=== PATIENT | female | born 1995 | race Caucasian/White ===

== ENCOUNTER 2016-07-13 15:26 | Emergency (ER) | payer BC ==
[2016-07-13 15:45] VITALS: BP 125/81
--- NOTE | 2016-07-13 16:13 | UC ---
Abdominal Pain Female HPI - HPI Summary HPI Summary: SUDDEN ONSET OF INTERMITTENT, SHARP UPPER ABDOMINAL PAIN THIS MORNING ABOUT 5: 30AM. HAS SOME MILD NAUSEA BUT NO EMESIS OR DIARRHEA. PT TENDS TO BE CONSTIPATED AND HAS 1-2 BOWEL MOVEMENTS PER WEEK ON AVERAGE. HAS STRUGGLED WITH CONSTIPATION HER WHOLE LIFE AND TODAY NOTICED SOME BRIGHT RED BLOOD ON HER STOOL AND IN THE BOWL AFTER A HARD, UNCOMFORTABLE BM. DENIES FEVER. NO URINARY SX. APPETITE IS DOWN. HAS NOT EATEN ANYTHING TODAY. HAS NEVER BEEN . - History of Current Complaint Chief Complaint: UCAbdominalPain Stated Complaint: ABD PAIN Time Seen by Provider: 07/13/16 15:50 Hx Obtained From: Patient Hx Last Menstrual Period: 06/16/16 Onset/Duration: Sudden Onset, Lasting Hours, Still Present Timing: Intermittent Episodes Lasting: Severity Initially: Moderate Severity Currently: Moderate Pain Intensity: 5 Pain Scale Used: 0-10 Numeric Location: Discrete At: RUQ, Epigastric Radiates: No Character: Sharp Aggravating Factor(s): Nothing Alleviating Factor(s): Nothing Associated Signs and Symptoms: Positive: Constipation, Blood in Stool, Decreased Appetite, Nausea. Negative: Diaphoresis, Fever, Cough, Chest Pain, Dizzy, Back Pain, Urinary Symptoms, Vaginal Bleeding, Vaginal Discharge, Vomiting, Diarrhea Allergies/Adverse Reactions: Allergies Allergy/AdvReac Type Severity Reaction Status Date / Time No Known Allergies Allergy Verified 07/13/16 15:36 Home Medications: Home Medications Control Med 1 tab DAILY 07/13/16 [History] Rx Headache Med 1 tab PRN 07/13/16 [History] PMH/Surg Hx/FS Hx/Imm Hx Endocrine History Of: Reports: Thyroid Disease - hypo, Hypothyroidism - Surgical History Surgical History: Yes Surgery Procedure, Year, and Place: WISDOM TEETH - Family History Known Family History: Positive: Hypertension - Social History Alcohol Use: None Substance Use Type: None Smoking Status (MU): Never Smoked Tobacco Household Exposure Type: Cigarettes - Immunization History Most Recent Influenza Vaccination: Fall 2015 Vaccination Up to Date: Yes Review of Systems Constitutional: Negative Respiratory: Negative Cardiovascular: Negative Gastrointestinal: Abdominal Pain, Other - NAUSEA All Other Systems Reviewed And Are Negative: Yes Physical Exam Triage Information Reviewed: Yes Appearance: Well-Appearing, No Pain Distress, Well-Nourished Vital Signs: Initial Vital Signs Temp 98.2 F 07/13/16 15:38 Pulse 85 07/13/16 15:38 Resp 18 07/13/16 15:38 BP 125/81 07/13/16 15:38 Pulse Ox 99 07/13/16 15:38 Vital Signs Reviewed: Yes Eyes: Positive: Conjunctiva Clear ENT: Positive: Hearing grossly normal Neck: Positive: Supple Respiratory Exam: Normal Cardiovascular Exam: Normal Abdomen Description: Positive: Soft, Other: - TTP RUQ AND EPIGASTRIC AREAS. NO REBOUND OR RIGIDITY. DECLINES RECTAL EXAM.. Negative: CVA Tenderness (R), CVA Tenderness (L), Distended, Guarding Bowel Sounds: Positive: Present Musculoskeletal: Positive: No Edema Neurological: Positive: Alert Psychological: Positive: Age Appropriate Behavior Skin: Negative: rashes Diagnostics - Laboratory Diagnostic Studies Completed/Ordered: URINE HCG NEG. URINE DIP SP. GR. 1.035 Abd Pain Female Course/Dx - Course Course Of Treatment: TO ER FOR FURTHER EVAL OF ABDOMINAL PAIN. PT DECLINES RECTAL EXAM TODAY AND STATES SHE WILL FOLLOW-UP WITH HER PCP IN [place]. DISCUSSED PROBABLE HEMORRHOIDS IN SETTING OF CHRONIC CONSTIPATION. STRESSED IMPORTANCE OF EVALUATION OF BRBPR TO DETERMINE UNDERLYING CAUSE. PT VOICES UNDERSTANDING. - Differential Dx/Diagnosis Differential Diagnosis: Constipation, Gall Bladder Disease, Pancreatitis Provider Diagnoses: 1. ABDOMINAL PAIN, NOS. 2. BRBPR - LIKELY HEMORRHOIDS - Physician Notification/Consults Discussed Patient Care With: ANANDA GAO Time Discussed With Above Provider: 16:25 Instructed by Provider To: [place] [facility] [place] [facility] [place] Discharge - Discharge Plan Condition: Stable Disposition: TRANS HIGHER LVL OF CARE FAC
== END 2016-07-13 16:30 | disposition short-term general hospital (02) ==
LOC: UCEAST 15:26
DX: R10.10 Upper abdominal pain, unspecified (principal); K62.5 Hemorrhage of anus and rectum; E03.9 Hypothyroidism, unspecified
CPT/HCPCS: 81002; 81025; 99212; G0463

== ENCOUNTER 2016-07-13 16:50 | Emergency (ER) | payer BC ==
[2016-07-13] MEDS ORDERED: Ondansetron INJ* 2 MG/ML VIAL IV ONE (17:48)
[2016-07-13] MEDS ORDERED: NS 0.9% 1000 ML* 1,000 ML IV ONE (17:48)
[2016-07-13] MEDS ORDERED: Pantoprazole IV* 40 MG IV ONE (17:48)
[2016-07-13 18:08] LABS: Hematocrit 39 % (35-47); Hemoglobin 13.2 g/dl (12.0-16.0); Mean Corpuscular HGB Conc 34 g/dl (31-36); Mean Corpuscular Hemoglobin 29 pg (27-31); Mean Corpuscular Volume 86 fL (80-97); Mean Platelet Volume 8 um3 (7.4-10.4); Red Blood Count 4.57 10^6/ul (4.0-5.4); Red Cell Distribution Width 12 % (10.5-15); White Blood Count 10.2 10^3/ul (3.5-10.8)
[2016-07-13 18:24] LABS: ALT 23 U/L (7-52); Albumin 4.6 g/dL (3.2-5.2); Alkaline Phosphatase 63 U/L (34-104); BUN/Creatinine Ratio 16.5 (8-20); Blood Urea Nitrogen 14 mg/dL (6-24); C Reactive Protein 1.93 mg/L (< 5.00); CO2 Carbon Dioxide 27 mmol/L (22-32); Calcium 9.8 mg/dL (8.6-10.3); Chloride 102 mmol/L (101-111); EGFR African American 109.7 (>60); EGFR Non-African American 85.3 (>60); Globulin 3.1 g/dL (2-4); Glucose 78 mg/dL (70-100); Lipase 19 U/L (11.0-82.0); Sodium 134 mmol/L (133-145); Total Protein 7.7 g/dL (6.4-8.9)
[2016-07-13 18:25] LABS: AST 27 U/L (13-39); Anion Gap 5 mmol/L (2-11); Potassium 4.2 mmol/L (3.5-5.0)
--- NOTE | 2016-07-13 18:55 | RAD ---
HISTORY: Epigastric pain COMPARISONS: None TECHNIQUE: Multiple transverse and longitudinal ultrasound images were obtained of the right upper quadrant. FINDINGS: LIVER: The liver is normal in dimensions and echogenicity. Normal hepatic and portal venous blood flow is duplicated with color flow imaging. There is no gross intrahepatic biliary duct dilatation. GALLBLADDER AND EXTRAHEPATIC BILIARY DUCT: The gallbladder is normal in appearance without intraluminal stones or other soft tissue masses. There is no pericholecystic fluid or gallbladder wall thickening. The common bile duct measures a maximum diameter of 4 mm. PANCREAS: The portions of the pancreas not obscured by bowel gas are normal in appearance. RIGHT KIDNEY: The right kidney is normal in size, morphology and echogenicity. AORTA AND IVC: The visualized portions are normal in appearance and not pathologically dilated. IMPRESSION: Normal ultrasound of the right upper quadrant.
[2016-07-13 19:16] LABS: Urine Bilirubin Negative (Negative); Urine Glucose Negative (Negative); Urine Nitrite Negative (Negative)
[2016-07-13 19:43] VITALS: BP 121/69
--- NOTE | 2016-07-13 20:42 | ED ---
pb Rivera Timothy, scribed for Ehsan Araya MD on 07/13/16 at 1738 . GI/ HPI - HPI Summary HPI Summary: Airam Hazel is a 21 yo female presenting to [facility] with intermittent 5/10 sharp abd pain and bright red blood in her stool yesterday, today, and one week ago. The pain makes her nauseous. She states the blood is accompanied by difficulty and rectal pain with BM. She states she has been constipated, but this is her baseline. She was recommended to present to [facility] by urgent care. Her MHx includes hypothyroidism. - History of Current Complaint Time Seen by Provider: 07/13/16 17:36 Stated Complaint: ABD PAIN/BLOOD IN STOOL/CONV CARE Hx Obtained From: Patient Onset/Duration: Started Weeks Ago, Still Present Timing: Intermittent Severity: Moderate Current Severity: Moderate Pain Intensity: 5 Location of Pain: Epigastric Associated Signs and Symptoms: Positive: Rectal Pain, Blood w/Stool, Abdominal Pain - Allergy/Home Medications Allergies/Adverse Reactions: Allergies Allergy/AdvReac Type Severity Reaction Status Date / Time No Known Allergies Allergy Verified 07/13/16 15:36 PMH/Surg Hx/FS Hx/Imm Hx Endocrine/Hematology History: Reports: Hx Thyroid Disease - hypo - Surgical History Surgery Procedure, Year, and Place: WISDOM TEETH Infectious Disease History: No Infectious Disease History: Denies: Traveled Outside the [place] in Last 30 Days - Family History Known Family History: Positive: Hypertension - Social History Alcohol Use: None Substance Use Type: Reports: None Smoking Status (MU): Never Smoked Tobacco Review of Systems Constitutional: Negative Eyes: Negative ENT: Negative Cardiovascular: Negative Respiratory: Negative Gastrointestinal: Other - blood with stool, rectal pain with BM Positive: Abdominal Pain, Nausea Genitourinary: Negative Musculoskeletal: Negative Skin: Negative Neurological: Negative Psychological: Normal All Other Systems Reviewed And Are Negative: Yes Physical Exam Triage Information Reviewed: Yes Vital Signs On Initial Exam: Initial Vitals Temp Pulse Resp BP Pulse Ox 97.5 F 81 20 126/74 99 07/13/16 16:52 07/13/16 16:52 07/13/16 16:52 07/13/16 16:52 07/13/16 16:52 Vital Signs Reviewed: Yes Appearance: Positive: Well-Appearing, No Pain Distress Skin: Positive: Warm, Skin Color Reflects Adequate Perfusion, Dry Head/Face: Positive: Normal Head/Face Inspection Eyes: Positive: Normal ENT: Positive: Normal ENT inspection Neck: Positive: Supple, Nontender Respiratory/Lung Sounds: Positive: Clear to Auscultation, Breath Sounds Present Cardiovascular: Positive: RRR Abdomen Description: Positive: Soft, Other: - positive govea's sign. Negative : Nontender - epigastric tenderness, RUQ tenderness Bowel Sounds: Positive: Present Musculoskeletal: Positive: Normal Neurological: Positive: Normal Psychiatric: Positive: Normal, Affect/Mood Appropriate Diagnostics - Vital Signs Vital Signs Temp Pulse Resp BP Pulse Ox 07/13/16 16:52 97.5 F 81 20 126/74 99 - Laboratory Lab Results: Lab Results 07/13/16 07/13/16 07/13/16 Range/Units 18:00 18:00 18:00 WBC 10.2 (3.5-10.8) 10^3/ul RBC 4.57 (4.0-5.4) 10^6/ul Hgb 13.2 (12.0-16.0) g/dl Hct 39 (35-47) % MCV 86 (80-97) fL MCH 29 (27-31) pg MCHC 34 (31-36) g/dl RDW 12 (10.5-15) % Plt Count 259 (150-450) 10^3/ul MPV 8 (7.4-10.4) um3 Neut % (Auto) 72.1 (38-83) % Lymph % (Auto) 20.9 L (25-47) % Thomas % (Auto) 5.1 (1-9) % Eos % (Auto) 1.2 (0-6) % Baso % (Auto) 0.7 (0-2) % Absolute Neuts (auto) 7.4 (1.5-7.7) 10^3/ul Absolute Lymphs (auto) 2.1 (1.0-4.8) 10^3/ul Absolute Monos (auto) 0.5 (0-0.8) 10^3/ul Absolute Eos (auto) 0.1 (0-0.6) 10^3/ul Absolute Basos (auto) 0.1 (0-0.2) 10^3/ul Absolute Nucleated RBC 0.01 10^3/ul Nucleated RBC % 0.1 Sodium 134 (133-145) mmol/L Potassium 4.2 (3.5-5.0) mmol/L Chloride 102 (101-111) mmol/L Carbon Dioxide 27 (22-32) mmol/L Anion Gap 5 (2-11) mmol/L BUN 14 (6-24) mg/dL Creatinine 0.85 (0.51-0.95) mg/dL Est GFR ( Amer) 109.7 (>60) Est GFR (Non-Af Amer) 85.3 (>60) BUN/Creatinine Ratio 16.5 (8-20) Glucose 78 (70-100) mg/dL Lactic Acid 0.8 (0.5-2.0) mmol/L Calcium 9.8 (8.6-10.3) mg/dL Total Bilirubin 0.90 (0.2-1.0) mg/dL AST 27 (13-39) U/L ALT 23 (7-52) U/L Alkaline Phosphatase 63 (34-104) U/L C-Reactive Protein 1.93 (< 5.00) mg/L Total Protein 7.7 (6.4-8.9) g/dL Albumin 4.6 (3.2-5.2) g/dL Globulin 3.1 (2-4) g/dL Albumin/Globulin Ratio 1.5 (1-3) Lipase 19 (11.0-82.0) U/L Beta HCG, Quant < 0.60 mIU/mL Urine Color Urine Appearance Urine pH (5-9) Ur Specific [place] (1.010-1.030) Urine Protein (Negative) Urine Ketones (Negative) Urine Blood (Negative) Urine Nitrate (Negative) Urine Bilirubin (Negative) Urine Urobilinogen (Negative) Ur Leukocyte Esterase (Negative) Urine Glucose (Negative) 07/13/16 Range/Units 19:04 WBC (3.5-10.8) 10^3/ul RBC (4.0-5.4) 10^6/ul Hgb (12.0-16.0) g/dl Hct (35-47) % MCV (80-97) fL MCH (27-31) pg MCHC (31-36) g/dl RDW (10.5-15) % Plt Count (150-450) 10^3/ul MPV (7.4-10.4) um3 Neut % (Auto) (38-83) % Lymph % (Auto) (25-47) % Thomas % (Auto) (1-9) % Eos % (Auto) (0-6) % Baso % (Auto) (0-2) % Absolute Neuts (auto) (1.5-7.7) 10^3/ul Absolute Lymphs (auto) (1.0-4.8) 10^3/ul Absolute Monos (auto) (0-0.8) 10^3/ul Absolute Eos (auto) (0-0.6) 10^3/ul Absolute Basos (auto) (0-0.2) 10^3/ul Absolute Nucleated RBC 10^3/ul Nucleated RBC % Sodium (133-145) mmol/L Potassium (3.5-5.0) mmol/L Chloride (101-111) mmol/L Carbon Dioxide (22-32) mmol/L Anion Gap (2-11) mmol/L BUN (6-24) mg/dL Creatinine (0.51-0.95) mg/dL Est GFR ( Amer) (>60) Est GFR (Non-Af Amer) (>60) BUN/Creatinine Ratio (8-20) Glucose (70-100) mg/dL Lactic Acid (0.5-2.0) mmol/L Calcium (8.6-10.3) mg/dL Total Bilirubin (0.2-1.0) mg/dL AST (13-39) U/L ALT (7-52) U/L Alkaline Phosphatase (34-104) U/L C-Reactive Protein (< 5.00) mg/L Total Protein (6.4-8.9) g/dL Albumin (3.2-5.2) g/dL Globulin (2-4) g/dL Albumin/Globulin Ratio (1-3) Lipase (11.0-82.0) U/L Beta HCG, Quant mIU/mL Urine Color Straw Urine Appearance Clear Urine pH 5.0 (5-9) Ur Specific [place] 1.008 L (1.010-1.030) Urine Protein Negative (Negative) Urine Ketones 1+ H (Negative) Urine Blood Negative (Negative) Urine Nitrate Negative (Negative) Urine Bilirubin Negative (Negative) Urine Urobilinogen Negative (Negative) Ur Leukocyte Esterase Negative (Negative) Urine Glucose Negative (Negative) Result Diagrams: 07/13/16 18:00 07/13/16 18:00 Lab Statement: Any lab studies that have been ordered have been reviewed, and results considered in the medical decision making process. - Ultrasound No standard instances Ultrasound Interpretation: No Acute Changes - IMPRESSION: Normal ultrasound of the right upper quadrant. Ultrasound Interpretation Completed By: Radiologist Re-Evaluation - Re-Evaluation First Eval Re-Evaluation Time: 19:02 Change: Unchanged Comment: Rectal exam was performed. She has a small rectal fissure at about 8 or 9 o'clock GIGU Course/Dx - Course Assessment/Plan: Airam Hazel is a 21 yo female presenting to [facility] with 3/10 abdominal pain and bright red blood in her stool, as well as nausea. After negative gallbladder ultrasound and review of her lab work, she will be discharged home. She improved a lot with prilosec and I found a small rectal fissure. Unfortunately it was at 8-9 and will need further W/U. - Diagnoses Provider Diagnoses: Epigastric pain, Rectal fissure Discharge - Discharge Plan Condition: Stable Disposition: HOME Prescriptions: Docusate CAP* [Colace Cap*] 100 mg PO BID #20 cap Omeprazole CAP* [Prilosec CAP* 20 MG] 20 mg PO BID #20 cap. Patient Education Materials: Epigastric Pain (ED), Rectal Bleeding (ED) Referrals: No Primary Care Phys,NOPCP [Primary Care Provider] - [facility] [Outside] - 2 Days Additional Instructions: Please follow up with the primary care physician provided regarding your visit to the emergency department today. Return to the emergency department with any new or recurring symptoms.INITIAL MANAGEMENT OF TYPICAL FISSURES For patients with a typical anal fissure (ie, a single posterior or anterior fissure with no evidence of Crohn disease), we recommend prescribing a combination of supportive measures (fiber, sitz bath, topical analgesic) and one of the topical vasodilators (nifedipine or nitroglycerin) for one month (algorithm 1). In addition, patients who are constipated should receive a stool softener or laxative. The treatment goal is to relax the internal anal sphincter, initiate and maintain atraumatic passage of stool, and relieve pain. Although medical therapy is less effective than surgery, especially for chronic anal fissures, it should be offered first because of its wide availability, better tolerance, and lack of severe complications (ie, fecal incontinence) [3,4 ]. The best data come from a trial that randomly assigned 54 patients with anal fissures to receive either a lateral internal sphincterotomy (surgery) or 0.2 percent nitroglycerin ointment (medical therapy) for 10 weeks; all patients received warm sitz baths and a fiber-bulking agent [5]. Compared with the medicine group, the surgery group achieved higher rates of fissure healing (96 versus 67 percent at 5 weeks and 100 versus 89 percent at 10 weeks) at the expense of a significantly higher rate of minor fecal incontinence (44 versus 0 percent). Fifteen percent of patients who underwent surgery had residual fecal incontinence after two years. Fiber Fiber therapy prevents hard bowel movements, which could reinjure a healing fissure. ?Increasing dietary fiber and water intake is the best way to soften and bulk the stool. The recommended dietary fiber intake is between 20 and 35 grams per day (table 1). ?Patients who continue to have difficulty with hard bowel movements despite increasing dietary fiber intake may use fiber supplements, such as psyllium seed (Metamucil), methylcellulose (Citrucel), wheat dextran (Benefiber), and calcium polycarbophil (Fibercon). These [id number] products work by absorbing water and increasing stool bulk, which increases the frequency of bowel movements and softens stool. Fiber supplements are safe for daily use, non -habit-forming, and can be used lifelong. Possible side effects may include gas and bloating, especially when they are first started. (See "Patient education: Constipation in adults (Beyond the Basics)".) Sitz bath Warm sitz baths, which can relax the anal sphincter and improve blood flow to the anal mucosa, are recommended for patients with anal fissures [ 6,7]. During a sitz bath, the anus is immersed in warm water for approximately 10 to 15 minutes two to three times daily. Sitz bath kits are available in most drugstores, and portable bowls can be used at work or school. At home, it is also possible to use a bathtub for sitz bath by filling it with two to three inches of warm water. Additives such as soap and bubble bath are not recommended. After a sitz bath, it is important to towel or blow dry (with a dehairing machine tender on low heat setting) the anal area well. Stool softner or laxative A variety of drugs (eg, Docusate) and natural products are available for treating constipation either [id number] or by prescription. Constipation may lead to straining, which can exacerbate the anal fissure. The documentation as recorded by the pb lombardi Timothy accurately reflects the service I personally performed and the decisions made by me, Ehsan Araya MD.
== END 2016-07-13 19:43 | disposition home or self-care (01) ==
LOC: ED 16:50
DX: R10.13 Epigastric pain (principal); K60.2 Anal fissure, unspecified; K62.89 Other specified diseases of anus and rectum; R11.0 Nausea
CPT/HCPCS: 36415; 76705; 80053; 81003; 83605; 83690; 84702; 85025; 86140; 96374; 96375; 99284; J2405

== ENCOUNTER 2017-06-18 15:25 | Emergency (ER) | payer BC ==
[2017-06-18 15:36] VITALS: BP 122/77
--- NOTE | 2017-06-18 16:30 | UC ---
FLU HPI - HPI Summary HPI Summary: Pt presents with 2 days of dry cough, fever, fatigue, and body aches. 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 She did get her flu shot this year. She has been taking ibuprofen for her symptoms with good control of her fever. Denies SOB, chest pain, abdominal pain, n/v/d/c. - History of Current Complaint Chief Complaint: UCRespiratory Stated Complaint: BODY ACHES, COUGH Time Seen by Provider: 06/18/17 16:29 Hx Obtained From: Patient Hx Last Menstrual Period: 05/21/17 Onset/Duration: Sudden Onset Severity Currently: Moderate Severity Initially: Moderate Pain Intensity: 6 Pain Scale Used: 0-10 Numeric - Allergy/Home Medications Allergies/Adverse Reactions: Allergies Allergy/AdvReac Type Severity Reaction Status Date / Time No Known Allergies Allergy Verified 06/18/17 15:37 PMH/Surg Hx/FS Hx/Imm Hx Previously Healthy: Yes - Surgical History Surgical History: Yes Surgery Procedure, Year, and Place: WISDOM TEETH - Family History Known Family History: Positive: Hypertension - Social History Occupation: Employed Full-time Lives: Alone Alcohol Use: Occasionally Substance Use Type: None Smoking Status (MU): Never Smoked Tobacco Household Exposure Type: Cigarettes - Immunization History Most Recent Influenza Vaccination: Fall 2015 Vaccination Up to Date: Yes Review of Systems Constitutional: Fever, Fatigue, Other - Body aches Skin: Negative Eyes: Negative ENT: Ear Ache Respiratory: Cough Cardiovascular: Negative Gastrointestinal: Negative Musculoskeletal: Negative Neurological: Negative Psychological: Negative All Other Systems Reviewed And Are Negative: Yes Physical Exam Triage Information Reviewed: Yes Appearance: No Pain Distress, Ill-Appearing, Obese Vital Signs: Initial Vital Signs Temp 98.9 F 06/18/17 15:33 Pulse 107 06/18/17 15:33 Resp 18 06/18/17 15:33 BP 122/77 06/18/17 15:33 Pulse Ox 100 06/18/17 15:33 Vital Signs Reviewed: Yes Eyes: Positive: Conjunctiva Clear. Negative: Conjunctiva Inflamed, Discharge ENT: Positive: Hearing grossly normal, Pharynx normal, TMs normal, Uvula midline. Negative: Pharyngeal erythema, Nasal congestion, Nasal drainage, TM bulging, TM dull, TM red, Tonsillar swelling, Tonsillar exudate, Hoarse voice, Sinus tenderness Neck: Positive: Supple, Nontender, No Lymphadenopathy Respiratory: Positive: Chest non-tender, Lungs clear, Normal breath sounds, No respiratory distress, No accessory muscle use Cardiovascular: Positive: RRR, No Murmur, Pulses Normal Neurological: Positive: Alert Psychological: Positive: Age Appropriate Behavior Skin: Negative: rashes Flu Course/Dx - Course Course Of Treatment: Influenza A positive - Tamiflu - Differential Dx/Diagnosis Provider Diagnoses: Influenza A Discharge - Discharge Plan Condition: Stable Disposition: HOME Prescriptions: Oseltamivir CAP* [Tamiflu CAP*] 75 mg PO BID #10 cap Patient Education Materials: Influenza (DC) Forms: *Work Release Referrals: No Primary Care Phys,NOPCP [Primary Care Provider] - Additional Instructions: If you develop a fever, shortness of breath, chest pain, new or worsening symptoms - please call your PCP or go to the ED.
== END 2017-06-18 17:20 | disposition home or self-care (01) ==
LOC: UCEAST 15:25
DX: J11.1 Influenza due to unidentified influenza virus with other respiratory manifestations (principal); E66.9 Obesity, unspecified; Z77.22 Contact with and (suspected) exposure to environmental tobacco smoke (acute) (chronic)
CPT/HCPCS: 87502; 99212; G0463

== ENCOUNTER 2018-02-09 13:20 | Emergency (ER) | payer BC ==
[2018-02-09 14:04] VITALS: BP 135/71
--- NOTE | 2018-02-09 14:51 | UC ---
Headache HPI - HPI Summary HPI Summary: pt c/o of elevated BP while having MCCORMACK. Pt had migraine two days ago while at work and had BP while at work. Pt states that her BP has been elevated for two days. Pt has hx of migraines and takes RX medication daily to manage them. Pt reports that at work she is not allow ed to sit if she is having a MCCORMACK. - History Of Current Complaint Chief Complaint: UCGeneralIllness Stated Complaint: HIGH BLOOD PRESSURE,MIGRANES Time Seen by Provider: 02/09/18 14:40 Hx Obtained From: Patient Hx Last Menstrual Period: 01/21/18 ?: No Onset/Duration: Sudden Onset, Lasting Days, Resolved Onset Of Symptoms: Sudden, Resolved Pain Intensity: 0 Timing: Constant Character: Dull, Pressure, Migraine Location of Headache: Diffuse Aggravating Factor(s): Position Change Allevating Factor(s): Rest, Medication Associated Signs And Symptoms: Positive: Negative - Risk Factors SAH Risk Factors: Negative Meningitis Risk Factors: Negative SDH Risk Factors: Negative Temporal Arteritis Risk Factors: Female - Allergies/Home Medications Allergies/Adverse Reactions: Allergies Allergy/AdvReac Type Severity Reaction Status Date / Time No Known Allergies Allergy Verified 02/09/18 13:53 Home Medications: Home Medications Rizatriptan ODT (NF) [Maxalt-INVESTMENT ACCOUNTING CLERK (NF)] 10 mg PO SEE INSTRUCTIONS PRN 02/09/18 [ History Confirmed 02/09/18] PMH/Surg Hx/FS Hx/Imm Hx Previously Healthy: Yes - Surgical History Surgical History: Yes Surgery Procedure, Year, and Place: WISDOM TEETH - Family History Known Family History: Positive: Hypertension - Social History Occupation: Employed Full-time Lives: With Family Alcohol Use: Occasionally Substance Use Type: None Smoking Status (MU): Never Smoked Tobacco Have You Smoked in the Last Year: No Household Exposure Type: Cigarettes - Immunization History Most Recent Influenza Vaccination: Fall 2015 Vaccination Up to Date: Yes Review of Systems Constitutional: Negative Skin: Negative Eyes: Negative ENT: Negative Respiratory: Negative Cardiovascular: Negative Gastrointestinal: Negative Genitourinary: Negative Motor: Negative Neurovascular: Negative Musculoskeletal: Negative Neurological: Headache Psychological: Negative Is Patient Immunocompromised?: No All Other Systems Reviewed And Are Negative: Yes Physical Exam Triage Information Reviewed: Yes Appearance: Well-Appearing, Other: - pt tearful when disucssing work environment. Vital Signs: Initial Vital Signs Temp 98.3 F 02/09/18 13:55 Pulse 86 02/09/18 13:55 Resp 15 02/09/18 13:55 BP 137/78 02/09/18 13:55 Pulse Ox 100 02/09/18 13:55 Vital Signs Reviewed: Yes Eye Exam: Normal ENT Exam: Normal ENT: Positive: Hearing grossly normal Dental Exam: Normal Neck exam: Normal Respiratory Exam: Normal Cardiovascular Exam: Normal Musculoskeletal Exam: Normal Neurological Exam: Normal Psychological Exam: Normal Skin Exam: Normal Headache Course/Dx - Differential Dx/Diagnosis Differential Diagnosis/HQI/PQRI: Migraine, Tension Headache Provider Diagnoses: Headache. elevated blood pressure. Discharge - Sign-Out/Discharge Documenting (check all that apply): Patient Departure All imaging exams completed and their final reports reviewed: No Studies - Discharge Plan Condition: Stable Disposition: HOME Patient Education Materials: Migraine Headache (ED) Forms: *Work Release, *Gen. Provider Communication Referrals: Don Damian MD [Primary Care Provider] - If Needed - Billing Disposition and Condition Condition: STABLE Disposition: Home
== END 2018-02-09 15:01 | disposition home or self-care (01) ==
LOC: UCCORT 13:20
DX: R51 Headache (principal); R03.0 Elevated blood-pressure reading, without diagnosis of hypertension
CPT/HCPCS: 99212; G0463

== ENCOUNTER 2018-06-08 15:59 | Emergency (ER) | payer BC ==
[2018-06-08 16:14] VITALS: BP 128/80
--- NOTE | 2018-06-08 17:29 | UC ---
Respiratory Complaint HPI - HPI Summary HPI Summary: 23-year-old female presents with 2 week history of nasal congestion, sinus congestion, bilateral ear fullness, occasional sore throat, and a productive cough for yellow sputum. Denies fever, chills, chest pain, palpitations, shortness of breath, abdominal pain, nausea, vomiting, or diarrhea. - History of Current Complaint Chief Complaint: UCGeneralIllness Stated Complaint: CHEST CONGESTION, AND SORE THROAT Time Seen by Provider: 06/08/18 17:10 Hx Obtained From: Patient Hx Last Menstrual Period: [id number] Pain Intensity: 8 - Allergies/Home Medications Allergies/Adverse Reactions: Allergies Allergy/AdvReac Type Severity Reaction Status Date / Time No Known Allergies Allergy Verified 06/08/18 16:16 Home Medications: Home Medications Fluticasone NASAL SPRAY 50MCG* [Flonase NASAL SPRAY 50MCG*] 1 spray BOTH NARES DAILY 06/08/18 [History Confirmed 06/08/18] Naproxen [Naproxen 500 mg tab] 500 mg PO DAILY PRN 06/08/18 [History Confirmed 06/08/18] Nortriptyline CAP* [Pamelor CAP*] 75 mg PO BEDTIME 06/08/18 [History Confirmed 06/08/18] PMH/Surg Hx/FS Hx/Imm Hx Endocrine History: Hypothyroidism Neurological History: Migraine Psychological History: Depression - Surgical History Surgical History: Yes Surgery Procedure, Year, and Place: WISDOM TEETH - Family History Known Family History: Positive: Hypertension - Social History Occupation: Employed Full-time Lives: Alone Alcohol Use: Occasionally Substance Use Type: None Smoking Status (MU): Never Smoked Tobacco Have You Smoked in the Last Year: No Household Exposure Type: Cigarettes - Immunization History Most Recent Influenza Vaccination: Fall 2015 Vaccination Up to Date: Yes Review of Systems All Other Systems Reviewed And Are Negative: Yes Physical Exam - Summary Physical Exam Summary: GENERAL APPEARANCE: Well developed, well nourished, alert and cooperative, and appears to be in no acute distress. EYES: Conjunctiva clear. No discharge. Vision is grossly intact. EARS: External auditory canals and tympanic membranes clear, hearing grossly intact. NOSE: Mild-moderate nasal congestion with mucosal erythema and edema. THROAT: Pharynx mildly erythematous with cobblestoning. No tonsilar inflammation , swelling, exudate, or lesions. Teeth and gingiva in good general condition. NECK: Neck supple, non-tender without lymphadenopathy. CARDIAC: Normal S1 and S2. No S3, S4 or murmurs. Rhythm is regular. There is no peripheral edema, cyanosis or pallor. Extremities are warm and well perfused. Capillary refill is less than 2 seconds. LUNGS: Clear to auscultation without rales, rhonchi, wheezing or diminished breath sounds. Cough not observed. ABDOMEN: Positive bowel sounds. Soft, nondistended, nontender. No guarding or rebound. No masses or hepatosplenomegally. MUSKULOSKELETAL: ROM intact to all extremities. No joint erythema or tenderness. Normal muscular development. Normal gait. SKIN: Skin normal color, texture and turgor with no lesions or eruptions. Triage Information Reviewed: Yes Vital Signs: Initial Vital Signs Temp 97.9 F 06/08/18 16:10 Pulse 89 06/08/18 16:10 Resp 14 06/08/18 16:10 BP 128/80 06/08/18 16:10 Pulse Ox 99 06/08/18 16:10 Vital Signs Reviewed: Yes Diagnostic Evaluation - Laboratory O2 Sat by Pulse Oximetry: 99 Respiratory Course/Dx - Course Course Of Treatment: 23-year-old female presents with 2 week history of nasal congestion, sinus congestion, bilateral ear fullness, occasional sore throat, and a productive cough for yellow sputum. Denies fever, chills, chest pain, palpitations, shortness of breath, abdominal pain, nausea, vomiting, or diarrhea. Afebrile. Vital signs stable. Exam reveals an adult female in no acute distress with [id number] nasal congestion, nasal mucosal erythema with mild edema, mild pharyngeal erythema with cobblestoning and otherwise unremarkable exam. Considering the duration of her symptoms I will change her for an upper respiratory infection with Augmentin 875 mg twice a day 10 days as well as symptomatic treatment. She is to follow up with her primary care provider in 7 days if symptoms do not improve. Anticipatory guidance and warning symptoms were reviewed with the patient. Patient verbalizes understanding and agrees with plan of care. - Differential Dx/Diagnosis Differential Diagnosis/HQI/PQRI: Bronchitis, Lower Resp Infection, Sinusitis, Other - URI Provider Diagnosis: URI with cough and congestion Discharge - Sign-Out/Discharge Documenting (check all that apply): Patient Departure All imaging exams completed and their final reports reviewed: No Studies - Discharge Plan Condition: Stable Disposition: HOME Prescriptions: Amoxicillin/Clavulanate TAB* [Augmentin TAB 875*] 875 mg PO BID #20 tab Patient Education Materials: Upper Respiratory Infection (ED) Referrals: Don Damian MD [Primary Care Provider] - 7 Days (If no improvement.) Additional Instructions: Your history and exam are consistent with an upper respiratory infection. Considering the duration of your symptoms we will treat the infection with an antibiotic. Start Augmentin 1 tab twice a day for 10 days. Take with food to avoid upset stomach. Be sure to complete the entire course even if you feel better. Drink plenty of fluids to avoid dehydration especially if you are running any fever. Use a saline rinse kit such as Neti Pot or NeilMed at least twice a day to help thin secretions and promote drainage of the sinuses. Continue to use your fluticasone (Flonase) nasal spray 2 sprays each nostril once daily. Use an over the counter decongestant such as Sudafed to help with the congestion. Take over the counter acetaminophen (Tylenol) or ibuprofen (Advil, Motrin) according to directions as needed for pain or fever. Use salt water gargles several times a day if you have a sore throat. You may also use Chloraseptic spray or Cepacol lonzenges according to directions which contain a numbing medication and can provide some temporary relief from your sore throat. Follow up with your primary care provider in 7 days if symptoms persist. Seek immediate medical attention in the emergency room if you have fever greater than 100.5 F despite taking acetaminophen or ibuprofen, have chest pain , difficulty breathing, are unable to swallow, or have any worsening of symptoms. - Billing Disposition and Condition Condition: STABLE Disposition: Home
== END 2018-06-08 18:00 | disposition home or self-care (01) ==
LOC: UCEAST 15:59
DX: J06.9 Acute upper respiratory infection, unspecified (principal)
CPT/HCPCS: 99212; G0463

== ENCOUNTER 2019-07-08 07:36 | Emergency (ER) | payer BC ==
[2019-07-08 07:59] VITALS: BP 145/99
--- NOTE | 2019-07-08 08:47 | UC ---
Dizzy HPI HPI Summary: When she got out of bed this morning she felt somewhat lightheaded when she was walking around. This has continued. She feels fine when she lying down or sitting. She has no other complaints. She denies any pain or nausea. She has not complaining of any recent infection. - History Of Current Complaint Chief Complaint: UCDizziness Stated Complaint: DIZZINESS Time Seen by Provider: 07/08/19 08:15 Hx Obtained From: Patient, Family/Adviser Sales Hx Last Menstrual Period: 06/20/19 ?: No Onset/Duration: Sudden Onset, Lasting Hours Timing: Constant Severity Initially: Mild Severity Currently: Mild Pain Intensity: 0 Character: Lightheaded Aggravating Factor(s): Supine To Erect Alleviating Factor(s): Rest Associated Signs And Symptoms: Positive: Negative - Allergies/Home Medications Allergies/Adverse Reactions: Allergies Allergy/AdvReac Type Severity Reaction Status Date / Time No Known Allergies Allergy Verified 07/08/19 07:59 Home Medications: Home Medications Levothyroxine TAB* [Synthroid 75 MCG TAB*] 125 mcg PO DAILY 09/18/12 [History Confirmed 07/08/19] Control Med 1 tab PO DAILY 07/13/16 [History Confirmed 07/08/19] Rizatriptan ODT (NF) [Maxalt-AUTOMOTIVE SALESPERSON (NF)] 10 mg PO SEE INSTRUCTIONS PRN 02/09/18 [ History Confirmed 07/08/19] Fluticasone NASAL SPRAY 50MCG* [Flonase NASAL SPRAY 50MCG*] 1 spray BOTH NARES DAILY 06/08/18 [History Confirmed 07/08/19] Nortriptyline CAP* [Pamelor CAP*] 75 mg PO BEDTIME 06/08/18 [History Confirmed 07/08/19] Citalopram TAB* [Celexa TAB*] 2 tab PO DAILY WITH MEAL 07/08/19 [History Confirmed 07/08/19] PMH/Surg Hx/FS Hx/Imm Hx Endocrine History: Thyroid Disease Neurological History: Migraine - Surgical History Surgical History: Yes Surgery Procedure, Year, and Place: WISDOM TEETH - Family History Known Family History: Positive: Hypertension - Social History Alcohol Use: Occasionally Substance Use Type: None Smoking Status (MU): Never Smoked Tobacco Have You Smoked in the Last Year: No Household Exposure Type: Cigarettes - Immunization History Most Recent Influenza Vaccination: Fall 2015 Vaccination Up to Date: Yes Review of Systems All Other Systems Reviewed And Are Negative: Yes Constitutional: Positive: Negative Skin: Positive: Negative Eyes: Positive: Negative ENT: Positive: Negative Respiratory: Positive: Negative Cardiovascular: Positive: Negative Gastrointestinal: Positive: Negative Genitourinary: Positive: Negative Motor: Positive: Negative Musculoskeletal: Positive: Negative Neurological/Mental Status: Positive: Negative Psychological: Positive: Negative Is Patient Immunocompromised?: No Physical Exam - Summary Physical Exam Summary: She is nontoxic in appearance with stable vital signs. She is obese Triage Information Reviewed: Yes Appearance: Well-Appearing, No Pain Distress, Obese Vital Signs: Initial Vital Signs Temp 97.6 F 07/08/19 07:53 Pulse 93 07/08/19 07:53 Resp 18 07/08/19 07:53 BP 145/99 07/08/19 07:53 Pulse Ox 99 07/08/19 07:53 Vital Signs Reviewed: Yes Eyes: Positive: Conjunctiva Clear ENT: Positive: Normal ENT inspection Neck exam: Normal Respiratory Exam: Normal Cardiovascular Exam: Normal Abdominal Exam: Normal Musculoskeletal Exam: Normal Neurological Exam: Normal Psychological Exam: Normal Skin Exam: Normal Dizzy Course/Dx - Course Course Of Treatment: Is no obvious reason for her dizziness at this point. It seems more like lightheadedness and not vertigo or balance issues. I recommended if she continues to have concerns that she go to the emergency department for more thorough evaluation. We are limited here to a few superficial tests. We cannot do specialized imaging or laboratory work. - Differential Dx/Diagnosis Provider Diagnosis: Light-headed feeling Discharge ED - Sign-Out/Discharge Documenting (check all that apply): Patient Departure All imaging exams completed and their final reports reviewed: No Studies - Discharge Plan Condition: Stable Disposition: HOME Patient Education Materials: Lightheadedness (ED) Referrals: Don Damian MD [Primary Care Provider] - - Billing Disposition and Condition Condition: STABLE Disposition: Home
[2019-07-08 09:17] LABS: Influenza A Molecular Negative (Negative); Influenza B Molecular Negative (Negative)
== END 2019-07-08 09:25 | disposition home or self-care (01) ==
LOC: UCEAST 07:36
DX: R42 Dizziness and giddiness (principal); E07.89 Other specified disorders of thyroid; G43.909 Migraine, unspecified, not intractable, without status migrainosus; Z79.890 Hormone replacement therapy; Z79.899 Other long term (current) drug therapy
CPT/HCPCS: 81003; 84702; 87086; 99211; G0463

== ENCOUNTER 2024-05-13 11:17 | Observation (INO) ==
[2024-05-13] MEDS: Lactated Ringers 1000 ml BAG 1,000 ML IV ONE (13:07)
[2024-05-13] MEDS: Metoclopramide 5 MG/ML VIAL (10 mg) IV ONE (13:12)
[2024-05-13 13:24] LABS: ABS Eosinophils 0.2 10^3/uL (0.0-0.5); ABS Lymphocytes 1.4 10^3/uL (1.0-4.8); ABS Monocytes 0.5 10^3/uL (0.0-0.9); ABS Neutrophils 5.9 10^3/uL (1.5-7.6); ABS Nucleated RBC 0.01 10^3/ul; Eosinophil % 2.6 %; Hematocrit 40.3 % (35-45); Hemoglobin 14.1 g/dL (11.5-14.3); Mean Corpuscular Hemoglobin 30.5 pg (27-33); Mean Corpuscular Volume 87.2 fL (80-97); Mean Platelet Volume 8.6 fL (7.5-11.2); Nucleated Red Blood Cells % 0.1 %/100WBC (0.0-0.8); Platelet Count 226 10^3/uL (150-450); Red Blood Count 4.62 10^6/uL (3.63-4.92); Red Cell Distribution Width 12.9 % (12-17)
[2024-05-13 13:53] LABS: Albumin 4.4 g/dL (3.5-5.7); Albumin/Globulin Ratio 1.8 (1-3); Calcium 9.3 mg/dL (8.6-10.3); Creatinine, Serum 1.11 mg/dL (0.51-0.95); Globulin 2.4 g/dL (2-4); Potassium 4.1 mmol/L (3.5-5.0); Total Bilirubin 0.8 mg/dL (0.2-1.0); Total Protein 6.8 g/dL (6.4-8.9); eGFR CKD-EPI 69.4 (>60)
[2024-05-13] MEDS: Caffeine Citrate INJ 60 MG/3 ML IV ONE ×2 (14:13→14:14)
[2024-05-13] MEDS: Caffeine Citrate ORAL 20 MG/ML ORAL.SOLN 3 ML (preservative free) PO ONE (14:37)
[2024-05-14] MEDS: Dihydroergotamine (D.H.E.) 1 MG/ML 1 ML AMP IV SLOW PU SCH (11:26)
[2024-05-14 11:36] LABS: INR 1.17 (0.85-1.14)
[2024-05-14] MEDS: Ondansetron 4 mg VIAL 2 MG/ML 2 ml VIAL IV PRN (13:29)
[2024-05-14] MEDS: Ondansetron 4 mg VIAL 2 MG/ML 2 ml VIAL ONE (13:52)
[2024-05-15 05:46] LABS: ABS Basophils 0.1 10^3/uL (0.0-0.1); ABS Eosinophils 0.4 10^3/uL (0.0-0.5); ABS Lymphocytes 2.1 10^3/uL (1.0-4.8); ABS Monocytes 0.5 10^3/uL (0.0-0.9); Hematocrit 42.3 % (35-45); Hemoglobin 14.4 g/dL (11.5-14.3); Lymphocyte % 25.8 %; Mean Corpuscular Hemoglobin 30.1 pg (27-33); Mean Corpuscular Hgb Conc 34.2 g/dL (31-36); Mean Corpuscular Volume 88.1 fL (80-97); Mean Platelet Volume 8.2 fL (7.5-11.2); Platelet Count 240 10^3/uL (150-450); Red Cell Distribution Width 13.1 % (12-17); White Blood Count 8.1 10^3/uL (3.8-11.8)
[2024-05-15 05:51] LABS: INR 1.17 (0.85-1.14)
[2024-05-15 07:12] LABS: Anion Gap 9 mmol/L (2-16); Blood Urea Nitrogen 12 mg/dL (6-24); CO2 Carbon Dioxide 23 mmol/L (22-32); Calcium 9.5 mg/dL (8.6-10.3); Chloride 105 mmol/L (101-111); Creatinine, Serum 1.09 mg/dL (0.51-0.95); Glucose 86 mg/dL (70-100); Sodium 137 mmol/L (135-145)
[2024-05-16 00:47] LABS: Anaplasma phagocytophilum Negative (Negative); B. miyamotoi PCR, B Negative (Negative); Babesia divergens/MO-1 Negative (Negative); Babesia ducani Negative (Negative); Ehrlichia chaffeensis Negative (Negative); Ehrlichia ewingii/canis Negative (Negative); Ehrlichia muris eauclairensis Negative (Negative)
[2024-05-16 06:48] LABS: Creatinine, Serum 1.18 mg/dL (0.51-0.95); Potassium 4.5 mmol/L (3.5-5.0); eGFR CKD-EPI 64.5 (>60)
[2024-05-16] MEDS: Butalb/Acetamin/Caff TAB 325-50-40MG PO PRN (10:40)
[2024-05-16] MEDS: Lactated Ringers 1000 ml BAG 1,000 ML IV SCH (10:41)
[2024-05-16 10:46] VITALS: BP 122/88
[2024-05-16] MEDS: Fluticasone NASAL SPRAY 50MCG 16 gm SPRAY BTL BOTH NARES SCH (10:49)
[2024-05-21 10:06] LABS: IgG Immunoblot Negative
[2024-05-21 10:07] LABS: IgM Immunoblot Negative
== END 2024-05-16 13:00 | disposition home or self-care (01) ==
LOC: EDHOLD 11:17 → ED 11:17 → MED 15:15
PROVIDERS: ADMIT Student in an Organized Health Care Education/Training Program; ATTEND Student in an Organized Health Care Education/Training Program